=== PATIENT | female | born 1955 | race Caucasian/White ===

== ENCOUNTER → 2016-10-29 | Outpatient (CLI) | payer BC ==
--- NOTE | 2016-11-01 07:43 | MAMMOGRAPHY REPORT ---
BILATERAL DIGITAL SCREENING MAMMOGRAM TOMOSYNTHESIS WITH CAD: 10/29/2016 CLINICAL HISTORY: Routine screening. Patient has no complaints. TECHNIQUE: Breast tomosynthesis in addition to standard 2D mammography was performed. Current study was also evaluated with a Computer Aided Detection (CAD) system. COMPARISON: Comparison is made to exams dated: 10/14/2015 mammogram, 08/22/2015 mammogram, 08/16/2014 m ammogram, 08/10/2013 mammogram, 08/04/2012 mammogram, and 08/04/2011 mammogram - [facility] er. BREAST COMPOSITION: There are scattered areas of fibroglandular density in both breasts. FINDINGS: No suspicious masses, calcifications, or areas of architectural distortion are noted in ei ther breast. There has been no significant interval change compared to prior exams. A linear scar ma rker denotes a scar on the right anterior breast from prior excision of a papilloma. IMPRESSION: ACR BI-RADS CATEGORY 2: BENIGN There is no mammographic evidence of malignancy. A 1 year screening mammogram is recommended. The pa tient will receive written notification of the results. Approximately 10% of breast cancers are not detected with mammography. A negative mammographic report should not delay biopsy if a clinically suggestive mass is present. Faye Poole M.D. /:10/29/2016 16:13:56 Property Coordinator: Purnima SURESH)(M), [facility] letter sent: Normal 1/2 BI-RADS Code: ACR BI-RADS Category 2: Benign
== END | disposition home or self-care (01) ==
LOC: C.MAMM 09:09
PROVIDERS: ATTEND Internal Medicine
DX: Z12.31 Encounter for screening mammogram for malignant neoplasm of breast (principal)

== ENCOUNTER 2017-03-29 02:58 | Observation (INO) | payer BC ==
[2017-03-29] VITALS (9 sets, daily range): BP systolic 112–157; BP diastolic 65–89; PULSE 62–70; TEMP 36.7–36.9; O2SAT 92–97; Ht 162.6 cm; Wt 123.8 kg
[~2017-03-29] VITALS: Ht 162.6 cm; Wt 123.8 kg
[2017-03-29] MEDS ORDERED: MoRPHine SULFATE 4 MG/ML 1 ML CARP\\VIAL IV STA (03:12)
[2017-03-29] MEDS ORDERED: ONDANSETRON INJ 2 MG/ML 2 ML VIAL IV STA ×2 (03:12→07:00)
[2017-03-29 03:34] LABS: BASO % 0.1 %; BASO ABS # 0.01 K/uL (0-0.2); EOS % 0.3 %; EOS ABS # 0.03 K/uL (0-0.5); HEMATOCRIT 46.3 % (37-47); HEMOGLOBIN 14.9 g/dL (12.0-16.0); IG# 0.04 K/uL (0.00-0.02); LYMPH % 16.1 %; LYMPH ABS # 1.68 K/uL (1.2-3.4); MEAN CORPUSCULAR HEMOGLOBIN 29.9 pg (25-34); MEAN CORPUSCULAR HGB CONC 32.2 g/dl (32-36); MEAN PLATELET VOLUME 9.2 fL (7.4-10.4); MONO ABS # 0.52 K/uL (0.11-0.59); NEUT % 78.1 %; NEUT ABS # 8.13 K/uL (1.4-6.5); PLATELET COUNT 299 K/uL (130-400); RED CELL DISTRIBUTION WIDTH CV 13.7 % (11.5-14.5); RED CELL DISTRIBUTION WIDTH SD 46.3 fL (36.4-46.3); WHITE BLOOD COUNT 10.41 K/uL (4.8-10.8)
[2017-03-29 03:51] LABS: ALBUMIN 3.8 gm/dl (3.4-5.0); ALT/SGPT 26 U/L (12-78); AST/SGOT 18 U/L (15-37); BLOOD UREA NITROGEN 19 mg/dl (7-18); CALCIUM 9.5 mg/dl (8.5-10.1); CARBON DIOXIDE 28 mmol/L (21-32); CREATININE 0.97 mg/dl (0.60-1.20); GLUCOSE 125 mg/dl (70-99); LIPASE 205 U/L (73-393); POTASSIUM 3.7 mmol/L (3.5-5.1); SODIUM 138 mmol/L (136-145)
[2017-03-29 03:56] LABS: ALKALINE PHOSPHATASE 88 U/L (45-117); TOTAL PROTEIN 7.6 gm/dl (6.4-8.2)
[2017-03-29] MEDS ORDERED: HYDROmorphone INJ 1 MG/ML SYR IV STA (04:05)
[2017-03-29] MEDS ORDERED: HYDROmorphone INJ 0.5 MG/0.5 ML SYR IV STA (05:15)
[2017-03-29] MEDS ORDERED: HYDROmorphone INJ 0.5 MG/0.5 ML SYR IV PRN (06:30)
[2017-03-29] MEDS ORDERED: ONDANSETRON INJ 2 MG/ML 2 ML VIAL ONE ×2 (07:00→11:31)
--- NOTE | 2017-03-29 07:01 | EMERGENCY ROOM VISIT NOTE ---
History First contact with patient: 03:09 Chief Complaint: VOMITING Stated Complaint: HEARTBURN, THROWING UP History of Present Illness The patient is a 61 year old female who presents to the Emergency Room with complaints of epigastric right upper quadrant pain for the past few hours described as discomfort, ranging in severity 8 out of 10. Nothing makes it better or worse. Patient tried tums and Prema-[place] without relief. No history of similar symptoms in the past. Patient had turkey, ham, filling, noodles,and salad for dinner. Patient has not seen a doctor in many years. No prior heart disease. She does not smoke or drink alcohol. No drug use. No family history of heart disease. Patient denies chest pain, dyspnea, fever, chills, cough, congestion, back pain, urinary symptoms. Review of Systems See HPI for pertinent positives & negatives. A total of 10 systems reviewed and were otherwise negative. Past Medical/Surgical History Hysterectomy Social History Smoking Status: Never Smoker Smokeless Tobacco Use: No Alcohol Use: none Drug Use: none Marital Status: Housing Status: lives with family Current/Historical Medications No Active Prescriptions or Reported Meds Physical Exam Vital Signs Date Time Temp Pulse Resp B/P (MAP) Pulse Ox O2 Delivery O2 Flow Rate FiO2 03/29/17 05:57 75 16 153/76 03/29/17 04:10 71 03/29/17 04:06 80 16 162/94 98 Room Air 03/29/17 03:28 Room Air 03/29/17 03:05 36.7 83 18 180/95 96 Room Air Physical Exam VITALS: Vitals are noted on the nurse's note and reviewed by myself. Vital signs stable. GENERAL: Pleasant female, in no acute distress, nondiaphoretic, well-developed well-nourished. SKIN: The skin was without rashes, erythema, edema, or bruising. There is no tenting of the skin. Capillary reflex less than 2 seconds. HEAD: Normocephalic atraumatic. EARS: External auditory canals clear, tympanic membranes pearly vásquez without erythema or effusion bilaterally. EYES: Pupils equal round and reactive to light and accommodation. Conjunctivae without injection, sclerae without icterus. Extraocular movements intact. NOSE: Patent, turbinates without inflammation or discharge. MOUTH: Mucous membranes moist. Pharynx without erythema or exudate. Uvula midline. Airway patent. Tongue does not deviate. NECK: Supple without nuchal rigidity. No lymphadenopathy. No thyromegaly. Cervical spine is nontender. No JVD. HEART: Regular rate and rhythm LUNGS: Clear to auscultation bilaterally without wheezes, rales or rhonchi. No dullness to percussion. No retractions or accessory muscle use. ABDOMEN: Positive bowel sounds x 4. Normal tympanic percussion. Soft, protuberant, obese, tender to palpation right upper quadrant, no CVA tenderness without masses or organomegaly. No guarding or rebound tenderness. MUSCULOSKELETAL: No muscle atrophy, erythema, noted. NEURO: Patient was alert and oriented to person place and time. Normal sensation to light and sharp touch. No focal neurological deficits. Medical Decision & Procedures Laboratory Results 03/29/17 03:20 Red Blood Count 4.98, Mean Corpuscular Volume 93.0, Mean Corpuscular Hemoglobin 29.9, Mean Corpuscular Hemoglobin Concent 32.2, Mean Platelet Volume 9.2, Neutrophils (%) (Auto) 78.1, Lymphocytes (%) (Auto) 16.1, Monocytes (%) (Auto) 5.0, Eosinophils (%) (Auto) 0.3, Basophils (%) (Auto) 0.1, Neutrophils # (Auto) 8.13, Lymphocytes # (Auto) 1.68, Monocytes # (Auto) 0.52, Eosinophils # (Auto) 0.03, Basophils # (Auto) 0.01 03/29/17 03:20 Test 03/29/17 03:20 03/29/17 05:16 White Blood Count 10.41 K/uL (4.8-10.8) Red Blood Count 4.98 M/uL (4.2-5.4) Hemoglobin 14.9 g/dL (12.0-16.0) Hematocrit 46.3 % (37-47) Mean Corpuscular Volume 93.0 fL (80-100) Mean Corpuscular Hemoglobin 29.9 pg (25-34) Mean Corpuscular Hemoglobin Concent 32.2 g/dl (32-36) Platelet Count 299 K/uL (130-400) Mean Platelet Volume 9.2 fL (7.4-10.4) Neutrophils (%) (Auto) 78.1 % Lymphocytes (%) (Auto) 16.1 % Monocytes (%) (Auto) 5.0 % Eosinophils (%) (Auto) 0.3 % Basophils (%) (Auto) 0.1 % Neutrophils # (Auto) 8.13 K/uL (1.4-6.5) Lymphocytes # (Auto) 1.68 K/uL (1.2-3.4) Monocytes # (Auto) 0.52 K/uL (0.11-0.59) Eosinophils # (Auto) 0.03 K/uL (0-0.5) Basophils # (Auto) 0.01 K/uL (0-0.2) RDW Standard Deviation 46.3 fL (36.4-46.3) RDW Coefficient of Variation 13.7 % (11.5-14.5) Immature Granulocyte % (Auto) 0.4 % Immature Granulocyte # (Auto) 0.04 K/uL (0.00-0.02) Anion Gap 6.0 mmol/L (3-11) Est Creatinine Clear Calc Drug Dose 80.2 ml/min Estimated GFR () 73.6 Estimated GFR (Non- 63.5 BUN/Creatinine Ratio 19.5 (10-20) Calcium Level 9.5 mg/dl (8.5-10.1) Total Bilirubin 0.7 mg/dl (0.2-1) Direct Bilirubin 0.2 mg/dl (0-0.2) Aspartate Amino Transf (AST/SGOT) 18 U/L (15-37) Alanine Aminotransferase (ALT/SGPT) 26 U/L (12-78) Alkaline Phosphatase 88 U/L (45-117) Troponin I < 0.015 ng/ml (0-0.045) Total Protein 7.6 gm/dl (6.4-8.2) Albumin 3.8 gm/dl (3.4-5.0) Lipase 205 U/L (73-393) Bedside Troponin I < 0.030 ng/ml (0-0.045) Medications Administered Medications (Trade) Dose Ordered Sig/Rick Route Start Time Stop Time Status Last Admin Dose Admin Morphine Sulfate (MoRPHine SULFATE INJ) 4 mg NOW STAT IV 03/29/17 03:12 03/29/17 03:13 DC 03/29/17 03:26 4 MG Ondansetron HCl (Zofran Inj) 4 mg NOW STAT IV 12/26/17 03:12 03/29/17 03:13 DC 03/29/17 03:27 4 MG Hydromorphone HCl (Dilaudid Inj) 1 mg NOW STAT IV 03/29/17 04:05 03/29/17 04:07 DC 03/29/17 04:09 1 MG Hydromorphone HCl (Dilaudid Inj) 0.5 mg NOW STAT IV 03/29/17 05:15 03/29/17 05:16 DC 03/29/17 05:19 0.5 MG ED Course Prior records/ancillary studies reviewed. Triage Nursing notes reviewed. Additional history obtained from family The patient's history was concerning for abdominal pain. Differential diagnosis: Etiologies such as cardiac, appendicitis, diverticulitis, PUD, biliary pathology , UTI, pancreatitis, obstruction, mesenteric ischemia, aortic pathology, infections, inflammatory bowel disease, renal colic, as well as others were entertained. Physical examination findings: As above. ER treatment provided: Morphine, Zofran On reassessment the patient felt better. Diagnostics interpreted by me: ECG: Normal sinus, normal intervals, left axis deviation, T-wave flattening in lead 3, no acute ST-T wave changes, rate of 76. Impression normal sinus rhythm with a left axis deviation interpreted by myself The labs revealed hyperglycemia without DKA. Negative troponin x 2 that was 2 hours apart Stable H&H. No leukocytosis Imaging studies: US RUQ: Evaluation somewhat limited by patient body habitus. Non-mobile stone at the gallbladder neck, measuring 2.3 cm. Sludge fills the gallbladder. Evaluation of sonographic Andrade sign limited due to administration of pain medication. Gallbladder wall is not thickened. No biliary ductal dilatation. Echogenic liver, which may related to hepatic steatosis and/or hepatocellular disease. Radiologist: Diego Gregg MD Study ready at 04:13 and initial results transmitted Chest x-ray with no acute consolidation, pneumothorax or free air per my interpretation. Consultation: A consultation was placed with the GS, Dr Torres. The case was discussed and diagnostics were reviewed. The patient was evaluated in the ER for further treatment. Dr. Torres PA evaluated the patient and states they will have the patient on to the OR this for surgery today. She was admitted to their service. Exam and history seem consistent with biliary colic with concerns for acute cholecystitis as patient is having ongoing pain and has a nonmobile stone in the neck of the gallbladder. Patient was neurovascularly and neurologically intact. She is well-appearing. She was given a list of family care doctors and advised to follow-up for her elevated blood pressure. Patient will be evaluated by the surgeon or his PA. They will admit the patient. Please see their H&P for further information regarding the treatment plan. By the evaluation outlined above emergent etiologies such as appendicitis, diverticulitis, PUD, UTI, pancreatitis, obstruction, mesenteric ischemia, aortic pathology, inflammatory bowel disease, renal colic, as well as others were deemed relatively unlikely. The pt informed about the findings as listed above. All questions were answered and pleased with the treatment. Case reviewed with my attending The chart was completed utilizing [employer] Speech voice recognition software. Grammatical errors, random word insertions, pronoun errors, and incomplete sentences are an occassional consequence of this system due to software limitations, ambient noise, and hardware issues. Any formal questions or concerns about the content, text, or information contained within the body of this dictation should be directly addressed to the physician business services assistant for clarification. Medical Decision As above Medication Reconcilliation Current Medication List: was personally reviewed by me Blood Pressure Screening Patient's blood pressure: Elevated blood pressure Blood pressure disposition: Referred to PCP Impression Primary Impression: Biliary colic Additional Impression: Intractable right upper quadrant abdominal pain Departure Information Dispostion Being Evaluated By Surgeon Condition GOOD Prescriptions No Active Prescriptions or Reported Meds Referrals No Doctor, Assigned (PCP) Patient Instructions My [facility] Problem Qualifiers
[2017-03-29 07:27] LABS: PTT PATIENT 28.7 SECONDS (21.0-31.0)
--- NOTE | 2017-03-29 07:30 | NUR ---
A/ID: 61 year old female in ED. c/o nausea, vomiting, abdominal pain. Small emesis yellow liquid at this time. medicated with Zofran, see EMAR. Possible admission/observation. Admission Assessment done. Code Word/Fall Agreement reviewed with patient and completed. Continued care in ED by GEOVANI Kent.
--- NOTE | 2017-03-29 07:35 | DIAGNOSTIC IMAGING REPORT ---
ABDOMINAL ULTRASOUND, RIGHT UPPER QUADRANT HISTORY: Right upper quadrant abdominal pain.. COMPARISON: None. FINDINGS: Pancreas: The pancreas demonstrates a normal echotexture. Liver: The liver is echogenic consistent with fatty change. Gallbladder: Multiple stones and sludge seen filling the gallbladder. The gallbladder is mildly distended. No gallbladder wall thickening. Dominant 2.3 cm stone within the neck of the gallbladder which appears to be impacted. Patient was medicated prior to the study, therefore, sonographic Andrade's sign was not adequately evaluated. CBD: 4 mm. Right kidney: No hydronephrosis. IMPRESSION: 1. Mildly distended gallbladder containing sludge and stones. There is a 2.3 cm stone at the neck of the gallbladder which may be impacted. No gallbladder wall thickening. Clinical correlation recommended to assess for an early acute cholecystitis. 2. Hepatic steatosis. Electronically signed by: Arturo Boyer M.D. 03/29/2017 7:34 AM Dictated Date/Time: 03/29/2017 7:32 AM
--- NOTE | 2017-03-29 07:39 | Medical Consult ---
Consultation Date of Consultation: Mar 29, 2017. Attending Physician: Reason for Consultation: Cholelithiasis History of Present Illness Patient presents to the ED this AM due to RUQ pain radiating to the back and right shoulder. She reports associated nausea and vomiting at home and has been dry heaving in the ED. States her pain started last night while she was having dinner with her family. States she was eating turkey, mashed potatoes and ham. She feels her pain began soon after she ate. Rated her pain last night as a 5/ 10. She reports minimal pain at this time but she has been getting IV dilaudid 0.5mg Q1H PRN for pain since she arrived to the ED. She did have some crackers later that night around 10pm but denies eating anything after that. She has been moving her bowels and urinating without issue. Denies any cardiac or lung problems. Denies use of blood thinning or anticoagulant medications. PSHx significant for MAIRA-SBO. Denies history of hypertension or diabetes. Patient unsure if she has any FHx of gallbladder disease. Past Medical/Surgical History Medical Problems: (1) Biliary colic Status: Acute (2) Intractable right upper quadrant abdominal pain Status: Acute Social History Smoking Status: Never Smoker Smokeless Tobacco Use: No Drug Use: none Marital Status: Housing Status: lives with family Allergies Coded Allergies: No Known Allergies (Verified , 11/18/15) Current Inpatient Medications Current Inpatient Medications Medications (Trade) Dose Ordered Sig/Rick Route Start Time Stop Time Status Last Admin Dose Admin Hydromorphone HCl (Dilaudid Inj) 0.5 mg Q1HWA PRN IV 03/29/17 06:30 04/12/17 06:29 Review of Systems Constitutional: + chills (last night), No fever, No sweats, No weight loss Respiratory: No shortness of breath Cardiovascular: No chest pain Abdomen: + pain (RUQ, mild since she has been on zofran), + nausea, + vomiting (last night (no blood), dry heaves at present), + problem reported ((-) madden' s sign on exam), No diarrhea, No constipation Integumentary: No rash, No color change Physical Exam Date Time Temp Pulse Resp B/P (MAP) Pulse Ox O2 Delivery O2 Flow Rate FiO2 03/29/17 07:10 75 03/29/17 07:04 76 18 149/68 96 Room Air 03/29/17 05:57 75 16 153/76 03/29/17 04:10 71 03/29/17 04:06 80 16 162/94 98 Room Air 03/29/17 03:28 Room Air 03/29/17 03:05 36.7 83 18 180/95 96 Room Air patient resting in bed somewhat uncomfortable with at bedside. Reports continuing nausea. She had an episode of dry heaving while I was in the room for which she was given an additional dose of zofran. General Appearance: WD/WN, no apparent distress Head: normocephalic, atraumatic Eyes: normal inspection ENT: hearing grossly normal Neck: trachea midline Respiratory/Chest: lungs clear, normal breath sounds, no respiratory distress, no accessory muscle use Cardiovascular: regular rate, rhythm, no gallop, no murmur Abdomen/GI: normal bowel sounds, soft, no organomegaly, no pulsatile mass, + tenderness (RUQ Moderate) Neurologic/Psych: alert, oriented x 3 Skin: normal color, warm/dry, no rash Laboratory Results Last 24 Hours Test 03/29/17 03:20 03/29/17 03:27 03/29/17 05:16 03/29/17 07:00 White Blood Count 10.41 K/uL Red Blood Count 4.98 M/uL Hemoglobin 14.9 g/dL Hematocrit 46.3 % Mean Corpuscular Volume 93.0 fL Mean Corpuscular Hemoglobin 29.9 pg Mean Corpuscular Hemoglobin Concent 32.2 g/dl Platelet Count 299 K/uL Mean Platelet Volume 9.2 fL Neutrophils (%) (Auto) 78.1 % Lymphocytes (%) (Auto) 16.1 % Monocytes (%) (Auto) 5.0 % Eosinophils (%) (Auto) 0.3 % Basophils (%) (Auto) 0.1 % Neutrophils # (Auto) 8.13 K/uL Lymphocytes # (Auto) 1.68 K/uL Monocytes # (Auto) 0.52 K/uL Eosinophils # (Auto) 0.03 K/uL Basophils # (Auto) 0.01 K/uL RDW Standard Deviation 46.3 fL RDW Coefficient of Variation 13.7 % Immature Granulocyte % (Auto) 0.4 % Immature Granulocyte # (Auto) 0.04 K/uL Sodium Level 138 mmol/L Potassium Level 3.7 mmol/L Chloride Level 104 mmol/L Carbon Dioxide Level 28 mmol/L Anion Gap 6.0 mmol/L Blood Urea Nitrogen 19 mg/dl Creatinine 0.97 mg/dl Est Creatinine Clear Calc Drug Dose 80.2 ml/min Estimated GFR () 73.6 Estimated GFR (Non- 63.5 BUN/Creatinine Ratio 19.5 Random Glucose 125 mg/dl Calcium Level 9.5 mg/dl Total Bilirubin 0.7 mg/dl Direct Bilirubin 0.2 mg/dl Aspartate Amino Transf (AST/SGOT) 18 U/L Alanine Aminotransferase (ALT/SGPT) 26 U/L Alkaline Phosphatase 88 U/L Troponin I < 0.015 ng/ml Total Protein 7.6 gm/dl Albumin 3.8 gm/dl Lipase 205 U/L Bedside Troponin I < 0.030 ng/ml < 0.030 ng/ml Assessment & Plan Symptomatic Cholelithiasis Gallstones on RUQ U/S - will elect to proceed with laparoscopic cholecystectomy today with Dr. Torres due to associated symptoms. Risks, benefits and alternatives to the procedure were discussed with the patient and her - all questions were answered. Admit med/surg, NPO, SCDs, IV Fluids, IV Dilaudid PRN for pain, IV zofran PRN for nausea. OR contacted - case will be added on today at 1100. Findings discussed with Dr. Torres. Please contact with questions or concerns. Patient seen and examined, labs and imaging reviewed, agree with above. 61-year- old female with what appears to be intractable biliary colic versus early cholecystitis. Plan for a laparoscopic cholecystectomy with possible intraoperative cholangiogram today. The risks of the procedure were discussed to include but are not limited to bleeding, infection, damage to common bile duct, conversion to open, need for future more extensive surgery, damage to surrounding structures, retained stone, bile leak, and the risks of anesthesia. Possible discharge later today or tomorrow morning after surgery. Antibiotics preop. The diagnosis, treatment options, details of the surgery and recovery, and the plan of care were discussed with the patient, all questions were answered, the patient expressed understanding and agreed to proceed with surgery as planned. Teresita Torres, DO
[2017-03-29] MEDS ORDERED: ONDANSETRON INJ 2 MG/ML 2 ML VIAL IV PRN ×4 (07:45→13:30)
--- NOTE | 2017-03-29 08:08 | DIAGNOSTIC IMAGING REPORT ---
CHEST ONE VIEW PORTABLE HISTORY: Atypical CHEST PAIN COMPARISON: None. FINDINGS: No pneumothorax. No pleural effusions. Low lung volumes. The heart is top normal in size. There is mild diffuse interstitial thickening. No focal lung consolidations to suggest pneumonia. IMPRESSION: Mild diffuse interstitial thickening which could be due to mild congestive change. Low lung volumes. Electronically signed by: Arturo Boyer M.D. 03/29/2017 8:06 AM Dictated Date/Time: 03/29/2017 7:42 AM
[2017-03-29] MEDS ORDERED: PROMETHAZINE HCL INJ 25 MG in SODIUM CHLORIDE 0.9% 50ML 50 ML IV ONE (09:15)
[2017-03-29] MEDS ORDERED: PROMETHAZINE HCL INJ 25 MG in SODIUM CHLORIDE 0.9% 50ML 50 ML IV PRN (10:15)
[2017-03-29] MEDS ORDERED: LABETALOL HCL IV 5 MG/ML 20ML IV PRN ×2 (10:45→11:15)
[2017-03-29] MEDS ORDERED: MEPERIDINE HCL 25 MG/ML CARP IV PRN ×2 (10:45→11:15)
[2017-03-29] MEDS ORDERED: HYDROmorphone INJ 1 MG/ML SYR IV PRN ×2 (10:45→11:15)
[2017-03-29] MEDS ORDERED: EpHEDrine SULFATE INJ 50 MG/ML AMP IV PRN ×2 (10:45→11:15)
[2017-03-29] MEDS ORDERED: FENTANYL CITRATE INJ 50 MCG/1 ML 2 ML VIAL IV PRN ×2 (10:45→11:15)
[2017-03-29] MEDS ORDERED: ATROPINE SULFATE 0.1 MG/ML 5ML SYR IV PRN ×2 (10:45→11:15)
[2017-03-29] MEDS ORDERED: IV FLUIDS COMPLETED PRN ×2 (11:15→13:45)
[2017-03-29] MEDS ORDERED: KETOROLAC TROMETHAMINE 30 MG/ML VIAL IV. PRN (11:15)
[2017-03-29] MEDS ORDERED: BUPIVACAINE 0.5 % 5 MG/1 ML MPF 30ML VIAL ONE (11:29)
[2017-03-29] MEDS ORDERED: PROPOFOL IV EMULSION 10 MG/ML 20 ML VIAL IV ONE (11:30)
[2017-03-29] MEDS ORDERED: LIDOCAINE HCL 2% 2 ML VIAL (20MG/ML) ONE (11:30)
[2017-03-29] MEDS ORDERED: ROCURONIUM BROMIDE 10 MG/ML 5 ML VIAL IV ONE (11:30)
[2017-03-29] MEDS ORDERED: NEOSTIGMINE METHYLSULFATE 5 MG/5 ML SYR ONE (11:31)
[2017-03-29] MEDS ORDERED: GLYCOPYRROLATE INJ 0.2 MG/ML VIAL ONE (11:31)
[2017-03-29] MEDS ORDERED: DEXAMETHASONE SOD INJ 4 MG/ML VIAL ONE (11:31)
[2017-03-29] MEDS ORDERED: MIDAZOLAM HCL 1 MG/ML 2ML VIAL ONE (11:31)
[2017-03-29] MEDS ORDERED: FENTANYL CITRATE INJ 50 MCG/1 ML 2 ML VIAL ONE ×2 (11:31→12:10)
[2017-03-29] MEDS: CEFOXITIN IV 2,000 MG in DEXTROSE 5% 50ML 50 ML IV SCH ×3 (11:49→21:45)
--- NOTE | 2017-03-29 13:07 | [facility] Post Operative Brief Note ---
Immediate Operative Summary Operative Date Mar 29, 2017. Pre-Operative Diagnosis Symptomatic cholelithiasis Post-Operative Diagnosis Acute cholecystitis, cholelithiasis Procedure(s) Performed Laparoscopic Cholecystectomy Surgeon Dr Torres Nursing Home Assistant Surgeon(s) Jasbir Wynne PA-C Estimated Blood Loss 8ML Findings inflamed gallbladder, large stone. Window of safety obtained, cystic duct and artery doubly clipped and divided. Specimens A. Gallbladder Drains None Anesthesia GETA Complication(s) None Disposition Recovery Room / PACU
--- NOTE | 2017-03-29 13:12 | [facility] Operative Report ---
Operative Report Operative Date Mar 29, 2017. Pre-Operative Diagnosis Symptomatic cholelithiasis Post-Operative Diagnosis Acute cholecystitis, cholelithiasis Procedure(s) Performed laparoscopic cholecystectomy Surgeon Dr Torres Roto Mixer Operator Surgeon(s) Jasbir Wynne PA-C Estimated Blood Loss 8ML Findings inflamed gallbladder, large stone. Window of safety obtained, cystic duct and artery doubly clipped and divided. Specimens A. Gallbladder Drains None Anesthesia GETA Complication(s) None Disposition Recovery Room / PACU Indications 61-year-old female that presented to the emergency department with severe nausea and abdominal pain. Ultrasound revealed a large gallstone and early signs of cholecystitis. Plan for laparoscopic cholecystectomy with possible cholangiogram. The risks of the procedure were discussed, all questions were answered, and the patient agreed to proceed with surgery as planned. Description of Procedure The patient was properly identified, consented, and taken to the operating room where she was placed in the supine position. General endotracheal anesthesia was induced. SCDs and a safety belt were placed. Preoperative antibiotics were administered. The patient's abdomen was prepped and draped in the standard sterile fashion. A surgical timeout was performed and all parties were in agreement that this was the correct patient and procedure to be performed and we continued as planned. An incision was made superior and to the left of the umbilicus overlying the rectus muscle and the Veress needle was inserted. Saline drop test confirmed entry into the peritoneum. The abdomen was insufflated with carbon dioxide which the patient tolerated without incident. The abdomen was then entered using the Optiview technique and a 5 mm trocar. The laparoscope was inserted and no damage from initial trocar or Veress needle placement was noted, no gross abnormalities were noted within the 4 quadrants of the abdomen. An 11 mm port was placed in the subxiphoid position and two 5 mm ports were then placed in the right subcostal position. The patient was placed in reverse Trendelenburg position and rotated towards the left. The gallbladder was obviously inflamed. The dome of the gallbladder was retracted towards the left upper quadrant and the infundibulum was retracted toward the right lower quadrant revealing Calot's triangle. Omental adhesions were taken down with blunt dissection. Peritoneal attachments were taken down with electrocautery and blunt dissection. There was a large stone at the infundibulum of the gallbladder. The cystic duct and artery were circumferentially dissected. A window of safety was obtained showing the cystic duct entering the gallbladder with no aberrant structures noted. The cystic duct and artery were doubly clipped and divided. The gallbladder was then lifted off the gallbladder fossa with electrocautery. The gallbladder was placed in an Endo Catch bag and removed through the subxiphoid port site. The subxiphoid fascia and skin incisions had to be extended to accommodate the gallbladder and the large gallstone. The right upper quadrant was irrigated and hemostasis was achieved with electrocautery and found to be good. 5 mm trochars were removed under direct visualization and the abdomen was allowed to collapse. The subxiphoid port site fascia was closed with a running 0 Vicryl suture. The wound was irrigated, and the skin of all ports was closed with 4-0 Monocryl subcuticular sutures. Dermabond was placed over the wounds. The Physician's Roto Mixer Operator, Jasbir Wynne, was essential for positioning, prepping, entry into the abdomen, retraction, exposure, and closing the abdomen. The patient was extubated in the operating room and taken to the PACU where she recovered without apparent incident. All sponge, instrument and needle counts were correct at the conclusion of the procedure. The patient tolerated the procedure well. I attest to the content of the Intraoperative Record and any orders documented therein. Any exceptions are noted below.
[2017-03-29] MEDS ORDERED: HYDR-5688 PO (13:25)
--- NOTE | 2017-03-29 13:27 | Discharge Instructions ---
Discharge Instructions Date of Service Mar 29, 2017. Admission Reason for Admission: Heartburn, Throwing Up Discharge Discharge Diagnosis / Problem: acute cholecystitis Discharge Goals Goal(s): Decrease discomfort Activity Recommendations Activity Limitations: as noted below Lifting Limitations: no more than 10 pounds Shower/Bathe: no limitations Driving or Machine Use: resume 3 days after discharge . Instructions / Follow-Up Instructions / Follow-Up Dr. Torres in 2 weeks, call [phone] to schedule, [address] Current Hospital Diet Patient's current hospital diet: Clear Liquid Diet Discharge Diet Recommended Diet: Low Fat Diet (for a few days) Procedures Procedures Performed: Laparoscopic Cholecystectomy Pending Studies Studies pending at discharge: yes List of pending studies: pathology Medical Emergencies . Who to Call and When: Medical Emergencies: If at any time you feel your situation is an emergency, please call 911 immediately. . Non-Emergent Contact Non-Emergency issues call your: Surgeon Call Non-Emergent contact if: you have a fever, temperature is above 101.5, your pain is not controlled, your pain is concerning you, wound has increased pain, you have any medication questions . "Provider Documentation" section prepared by Jasbir Wynne. . VTE Core Measure Inpt VTE Proph given/why not?: SCD's [place] Drug Monitoring Program Search Results: no issues identified
[2017-03-29] MEDS ORDERED: HYDROCODONE/ACETAMIN 5/325MG TAB PO PRN (13:30)
[2017-03-29] MEDS ORDERED: MoRPHine SULFATE 4 MG/ML 1 ML CARP\\VIAL IV PRN (13:30)
[2017-03-29] MEDS ORDERED: KETOROLAC TROMETHAMINE 15 MG/ML VIAL IV PRN (13:30)
--- NOTE | 2017-03-29 13:51 | Anesthesiology Progress Note ---
Anesthesia Post Op Note Date & Time Mar 29, 2017 at 13:51 Vital Signs Pain Intensity: 2 Vital Signs Past 12 Hours Date Time Temp Pulse Resp B/P (MAP) Pulse Ox O2 Delivery O2 Flow Rate FiO2 03/29/17 13:42 36.5 71 20 03/29/17 13:42 85 20 162/79 100 03/29/17 13:37 65 16 144/76 98 03/29/17 13:37 65 16 03/29/17 13:32 68 21 164/69 100 03/29/17 13:32 68 21 03/29/17 13:27 73 17 154/80 98 03/29/17 13:27 73 17 03/29/17 13:26 160/109 03/29/17 13:17 36.9 81 16 174/84 99 Oxymask 7 03/29/17 10:51 36.7 03/29/17 10:19 75 20 124/62 97 Room Air 03/29/17 08:32 66 18 135/79 96 Room Air 03/29/17 07:30 96 Room Air 03/29/17 07:10 75 03/29/17 07:04 76 18 149/68 96 Room Air 03/29/17 05:57 75 16 153/76 03/29/17 04:10 71 03/29/17 04:06 80 16 162/94 98 Room Air 03/29/17 03:28 Room Air 03/29/17 03:05 36.7 83 18 180/95 96 Room Air Notes Mental Status: alert / awake / arousable, participated in evaluation Pt Amnestic to Procedure: Yes Nausea / Vomiting: adequately controlled Pain: adequately controlled Airway Patency, RR, SpO2: stable & adequate BP & HR: stable & adequate Hydration State: stable & adequate Anesthetic Complications: no major complications apparent
--- NOTE | 2017-03-29 15:29 | NUR ---
A NOTE: Patient arrived to floor at 1420, family member at beside, oriented to room and call chandler system
--- NOTE | 2017-03-29 16:00 | NUR ---
OBS: Pt. is post op from a lap geetha, arrived to the unit at 1420. Pt. is A&Ox4, clear on 2L, denies pain. Pulses palpable, no edema observed. IV fluids infusing per order. BS hypo x4 quadrants, denies gas. Has not voided. Has not been OOB yet. Call chandler within reach, hourly rounding maintained.
[2017-03-29] MEDS: LACTATED RINGER'S 1000ML 1,000 ML IV SCH (17:05)
--- NOTE | 2017-03-29 20:00 | NUR ---
OBS: Pt. is post op from a lap geetha, arrived to the unit at 1420. Pt. is A&Ox4, clear on room air, denies pain. Pulses palpable, no edema observed. IV fluids infusing per order. BS hypo x4 quadrants, denies gas, tolerating a low fat diet. Voiding in the toilet, no difficulty. OOB with supervision assist, due to red socks. Call chandler within reach, hourly rounding maintained.
--- NOTE | 2017-03-30 00:50 | NUR ---
OBS: Pt. alert and oriented x4. Vitals WNL. IVF infusing as ordered. Denies pain. Tolerating Low Fat diet. Dermabond intact to 4 abdominal sites; well-approximated, ARI. Voiding in toilet. Supervision with ambulation. Discharge plans uncertain at this time.
[2017-03-30] MEDS ORDERED: NURSING DECISION MEDICATION ORDER SCH (01:15)
[2017-03-30] MEDS: CEFOXITIN IV 2,000 MG in DEXTROSE 5% 50ML 50 ML IV SCH (03:46)
[2017-03-30] MEDS: LACTATED RINGER'S 1000ML 1,000 ML IV SCH (03:46)
[2017-03-30 03:47] VITALS: BP 106/64; PULSE 62; TEMP 36.7; O2SAT 96
--- NOTE | 2017-03-30 04:00 | NUR ---
OBS: Pt. alert and oriented x4. Vitals WNL. IVF and IVABX infusing as ordered. Denies pain. Tolerating Low Fat diet. Dermabond intact x4 abdominal sites; well-approximated, [employer]. Voiding in toilet. Supervision with ambulation. Discharge plans uncertain at this time.
[2017-03-30 07:03] VITALS: BP 133/81; PULSE 56; TEMP 36.7; O2SAT 95
--- NOTE | 2017-03-30 08:00 | NUR ---
ID/OBS: Patient is alert and oriented x 4. On room air, clear. Tolerating low fat diet. Voiding in the BR. IVF infusing as ordered. Lap sites x 4 C/D/I. Vital signs stable. Call chandler within reach. No complaints of pain. Will monitor.
--- NOTE | 2017-03-30 08:30 | Anesthesiology Progress Note ---
Anesthesia Post Op Note Date & Time Mar 30, 2017 at 08:30 Vital Signs Pain Intensity: 0.0 Vital Signs Past 12 Hours Date Time Temp Pulse Resp B/P (MAP) Pulse Ox O2 Delivery O2 Flow Rate FiO2 03/30/17 07:03 36.7 56 17 133/81 (98) 95 Room Air 03/30/17 03:47 36.7 62 16 106/64 (78) 96 Room Air 03/30/17 00:50 Room Air 03/29/17 23:05 36.9 67 16 112/65 (81) 93 Room Air 03/29/17 20:55 36.7 64 16 125/68 (87) 92 Room Air Notes Mental Status: alert / awake / arousable, participated in evaluation Pt Amnestic to Procedure: Yes Nausea / Vomiting: adequately controlled Pain: adequately controlled Airway Patency, RR, SpO2: stable & adequate BP & HR: stable & adequate Hydration State: stable & adequate Anesthetic Complications: no major complications apparent
--- NOTE | 2017-03-30 09:19 | Surgery Progress Note ---
Surgery Progress Note Date of Service Mar 30, 2017. Subjective Post OP Day: 1 + feeling well, + flatus, + diet Objective Vital Signs: Date Time Temp Pulse Resp B/P (MAP) Pulse Ox O2 Delivery O2 Flow Rate FiO2 03/30/17 08:00 Room Air 03/30/17 07:03 36.7 56 17 133/81 (98) 95 Room Air 03/30/17 03:47 36.7 62 16 106/64 (78) 96 Room Air 03/30/17 00:50 Room Air 03/29/17 23:05 36.9 67 16 112/65 (81) 93 Room Air 03/29/17 20:55 36.7 64 16 125/68 (87) 92 Room Air 03/29/17 17:34 70 16 136/73 (94) 97 Room Air 03/29/17 16:36 36.8 68 16 118/68 (85) 95 Nasal Cannula 1.0 03/29/17 15:31 36.7 62 16 121/72 (88) 94 Ambu-Bag 1.0 03/29/17 15:27 Nasal Cannula 2.0 03/29/17 15:25 36.8 66 18 157/89 (111) 96 Nasal Cannula 2.0 03/29/17 15:24 Nasal Cannula 2.0 03/29/17 15:15 94 Nasal Cannula 2.0 03/29/17 14:59 64 16 121/69 (86) 94 Nasal Cannula 1.0 03/29/17 14:03 62 13 03/29/17 14:03 62 13 98 03/29/17 14:02 149/71 03/29/17 13:58 70 22 03/29/17 13:58 71 22 94 03/29/17 13:57 148/80 03/29/17 13:53 64 18 03/29/17 13:53 65 18 92 03/29/17 13:52 160/82 03/29/17 13:48 62 18 96 03/29/17 13:48 62 18 03/29/17 13:47 145/83 03/29/17 13:43 66 22 99 03/29/17 13:43 67 22 03/29/17 13:42 36.5 71 20 03/29/17 13:42 85 20 162/79 100 03/29/17 13:40 Nasal Cannula 3 03/29/17 13:37 65 16 144/76 98 03/29/17 13:37 65 16 03/29/17 13:32 68 21 164/69 100 03/29/17 13:32 68 21 03/29/17 13:27 73 17 154/80 98 03/29/17 13:27 73 17 03/29/17 13:26 160/109 03/29/17 13:17 36.9 81 16 174/84 99 Oxymask 7 03/29/17 10:51 36.7 03/29/17 10:19 75 20 124/62 97 Room Air General Appearance: no apparent distress Abdomen: non tender, soft Assessment & Plan POD#1 feeling well +flatus [place] diet ok for d/c. instructions given. f/u Dr. Torres in 1-2 weeks.
[2017-03-30] MEDS ORDERED: TRAM-453 PO (09:23)
[2017-03-30 09:48] VITALS: BP 133/81; PULSE 56; TEMP 36.7; O2SAT 95
== END 2017-03-30 10:30 | disposition home or self-care (01) ==
LOC: C.EDB 02:59 → C.MSW 07:45 → EDBEDREQ 07:56 → CANRESERV 08:01 → ENRESERV 08:01 → CANBEDREQ 08:11 → ENRESERV 13:55
PROVIDERS: ADMIT Surgery; ATTEND Surgery
DX: K80.10 Calculus of gallbladder with chronic cholecystitis without obstruction (principal); E66.9 Obesity, unspecified; Z68.43 Body mass index [BMI] 50.0-59.9, adult

== ENCOUNTER → 2017-11-04 | Outpatient (CLI) | payer OTHER ==
--- NOTE | 2017-11-04 14:35 | MAMMOGRAPHY REPORT ---
BILATERAL DIGITAL SCREENING MAMMOGRAM TOMOSYNTHESIS WITH CAD: 11/04/2017 CLINICAL HISTORY: Routine screening. Patient has no complaints. TECHNIQUE: The study was acquired using full field digital technology and interpreted from soft copy. Breast tomosynthesis in addition to standard 2D mammography was performed. Current study was also ev aluated with a Computer Aided Detection (CAD) system. COMPARISON: Comparison is made to exams dated: 10/29/2016 mammogram, 10/17/2015 mammogram, 10/14/2015 m ammogram, 08/22/2015 mammogram, 08/16/2014 mammogram, and 08/10/2013 mammogram - [facility] nter. BREAST COMPOSITION: There are scattered areas of fibroglandular density in both breasts. FINDINGS: No suspicious masses, calcifications, or areas of architectural distortion are noted in either breast . There has been no significant interval change compared to prior exams. IMPRESSION: ACR BI-RADS CATEGORY 1: NEGATIVE There is no mammographic evidence of malignancy. A 1 year screening mammogram is recommended.( 019) The patient will receive written notification of the results. Some breast cancers are not detected with mammography. A negative mammographic report should not clifton y biopsy if a clinically suggestive mass is present. Faye Poole M.D. ah/:11/04/2017 12:46:30 Executive Chairman Of The Board: RT José Luis(R)(M), [facility] letter sent: Normal 1/2 BI-RADS Code: ACR BI-RADS Category 1: Negative
== END | disposition home or self-care (01) ==
LOC: C.MAMM 09:18
PROVIDERS: ATTEND Internal Medicine
DX: Z12.31 Encounter for screening mammogram for malignant neoplasm of breast (principal)